=== PATIENT | female | born 1970 | race Caucasian/White ===

== ENCOUNTER 2019-07-05 08:07 | Emergency (ER) | payer MEDICAID ==
[~2019-07-05] VITALS: Ht 160 cm; Wt 66.5 kg
[~2019-07-05 08:07] MED LIST: BENZ12LI2 MM; IBUP-1542 PO; TRAM50TA2
[2019-07-05 08:10] VITALS: BP 150/66; PULSE 79; RESP 17; Ht 160 cm; Wt 66.5 kg
[2019-07-05] MEDS ORDERED: KETOROLAC 30 MG INJ IM STA (09:20)
== END 2019-07-05 09:44 | disposition home or self-care (01) ==
LOC: FTE 08:07
DX: K14.6 Glossodynia (principal)
CPT/HCPCS: 81025; 96372; J1885; Z7502